=== PATIENT | female | born 1945 | race Caucasian/White ===

== ENCOUNTER → 2017-01-03 | Outpatient (CLI) | payer MEDICARE, BC | END | disposition home or self-care (01) | LOC: PCVCCLINIC 13:12 | PROVIDERS: ATTEND Internal Medicine Cardiovascular Disease | DX: I25.10 Atherosclerotic heart disease of native coronary artery without angina pectoris (principal); E78.00 Pure hypercholesterolemia, unspecified; M19.90 Unspecified osteoarthritis, unspecified site; J44.9 Chronic obstructive pulmonary disease, unspecified; K21.9 Gastro-esophageal reflux disease without esophagitis; Z90.49 Acquired absence of other specified parts of digestive tract; Z79.899 Other long term (current) drug therapy; Z87.891 Personal history of nicotine dependence | CPT/HCPCS: 80061; 93005; G0463 ==

== ENCOUNTER → 2017-02-06 | Outpatient (CLI) | payer MEDICARE, BC ==
[~2017-02-06] MED LIST: fentaNYL PF VIAL 100 MCG/2 ML VIAL ONE
--- NOTE | 2017-02-06 13:11 | PCVCIMAG ---
APPROVED REPORT Study performed: 02/06/2017 11:17:52 EXAM: Comprehensive 2D, Doppler, and color-flow Echocardiogram Patient Location: Echo lab Status: routine BSA: 1.40 HR: 106 bpmBP: 150/72 mmHg Rhythm: Tachycardia Other Information Study Quality: Adequate Risk Factors: Cardiac Risk Factors: SOB, HTN, Hyperlipidemia Indications COPD assess PAP 2D Dimensions LVEF(%): 31.71 (>50%) IVSd: 10.99 (7-11mm) LVDd: 32.70 mm PWd: 10.13 (7-11mm) LVDs: 27.97 (25-40mm) Left Atrium: 34.84 (27-40mm) Aortic Root: 28.93 mm LV Single Plane 4CH: 65.95 % LV Single Plane 2CH: 59.02 %Panchal's LVEF: 62.49 % Biplane EF: 62.2 % Volumes Left Atrial Volume (Systole) Single Plane 4CH: 45.49 mLSingle Plane 2CH: 51.46 mL LA ESV Index: 35.00 mL/m2 Aortic Valve AoV Peak Chapo.: 1.37 m/s AO Peak Gr.: 7.56 mmHgLVOT Max P.01 mmHg LVOT Max V: 1.00 m/s Mitral Valve E/A Ratio: 0.8 MV Decel. Time: 240.71 ms MV E Max Chapo.: 0.73 m/s MV A Chapo.: 0.92 m/s IVRT: 107.27 ms Pulmonary Valve PV Peak Chapo.: 1.20 m/sPV Peak Gr.: 5.74 mmHg Pulmonary Vein P Vein S: 0.22 m/sP Vein A: 0.39 m/s P Vein D: 0.29 m/sP Vein A Dur.: 117.6 msec P Vein S/D Ratio: 0.76 Tricuspid Valve TR Peak Chapo.: 2.88 m/s TR Peak Gr.: 33.20 mmHg Left Ventricle The left ventricle is normal size. There is normal LV segmental wall motion. There is normal left ventricular wall thickness. Left ventricular systolic function is normal. The left ventricular ejection fraction is within the normal range. LVEF is 65%. Grade I - abnormal relaxation pattern. Right Ventricle The right ventricle is normal size. The right ventricular systolic function is normal. Atria The left atrium size is normal. The right atrium size is normal. Aortic Valve The aortic valve is normal in structure. No aortic regurgitation is present. There is no aortic valvular stenosis. Mitral Valve The mitral valve is normal in structure. There is no mitral valve regurgitation noted. No evidence of mitral valve stenosis. Tricuspid Valve The tricuspid valve is normal in structure. Mild tricuspid regurgitation with PAP of 40 mmHg. Pulmonic Valve The pulmonary valve is normal in structure. There is no pulmonic valvular regurgitation. Great Vessels The aortic root is normal in size. IVC is normal in size and collapses with >50% inspiration Pericardium There is no pericardial effusion. <Conclusion> Left ventricular systolic function is normal. The left ventricular ejection fraction is within the normal range. LVEF is 65%. Grade I - abnormal relaxation pattern. The right ventricle is normal size. The left atrium size is normal. The right atrium size is normal. The aortic valve is normal in structure. There is no mitral valve regurgitation noted. Mild tricuspid regurgitation with PAP of 40 mmHg. There is no pericardial effusion.
== END | disposition home or self-care (01) ==
LOC: PCVCIMAG 11:30
PROVIDERS: ATTEND Internal Medicine Cardiovascular Disease
DX: I07.1 Rheumatic tricuspid insufficiency (principal); I10 Essential (primary) hypertension; J44.9 Chronic obstructive pulmonary disease, unspecified; E78.5 Hyperlipidemia, unspecified; K21.9 Gastro-esophageal reflux disease without esophagitis; C02.9 Malignant neoplasm of tongue, unspecified
CPT/HCPCS: 93306; J3010

== ENCOUNTER → 2017-08-02 | Outpatient (CLI) | payer MEDICARE, BC | END | disposition home or self-care (01) | LOC: PCVCIMAG 10:23 | DX: I10 Essential (primary) hypertension (principal); E78.00 Pure hypercholesterolemia, unspecified; I42.9 Cardiomyopathy, unspecified; C02.9 Malignant neoplasm of tongue, unspecified; K21.9 Gastro-esophageal reflux disease without esophagitis; J44.9 Chronic obstructive pulmonary disease, unspecified; I34.0 Nonrheumatic mitral (valve) insufficiency; I25.10 Atherosclerotic heart disease of native coronary artery without angina pectoris; Z82.49 Family history of ischemic heart disease and other diseases of the circulatory system | CPT/HCPCS: 80061; 93005; 93308; G0463 ==

== ENCOUNTER → 2018-01-24 | Outpatient (CLI) | payer MEDICARE, BC ==
--- NOTE | 2018-01-24 14:28 | PCVCIMAG ---
EXAM: BILATERAL RENAL ULTRASOUND AND BILATERAL RENAL DUPLEX INDICATION: Hypertension. FINDINGS: Right kidney: Length measures 10.6 cm. No hydronephrosis or extensive renal scarring. Incidental note is made of a 1.0 x 1.4 cm benign cyst midpole medially. Right renal duplex: Adequate technical quality. No sonographic evidence of renal artery stenosis. The aortic to renal artery ratio is 1.6. The renal vein is patent. Left kidney: Length measures 10.3 cm. No hydronephrosis or extensive renal scarring. Left renal duplex: Adequate technical quality. No sonographic evidence of renal artery stenosis. The aortic to renal artery ratio is 1.7. The renal vein is patent. Bladder: No obvious abnormalities. IMPRESSION: No significant renal artery stenosis. No hydronephrosis bilaterally. LOC:[id number]
== END | disposition home or self-care (01) ==
LOC: PCVCIMAG 12:50
PROVIDERS: ATTEND Internal Medicine Cardiovascular Disease
DX: N28.1 Cyst of kidney, acquired (principal); I10 Essential (primary) hypertension
CPT/HCPCS: 76770; 93975

== ENCOUNTER → 2018-03-21 | Outpatient (CLI) | payer MEDICARE, BC | END | disposition home or self-care (01) | LOC: PCVCCLINIC 11:20 | PROVIDERS: ATTEND Internal Medicine Cardiovascular Disease | DX: I51.81 Takotsubo syndrome (principal); R06.02 Shortness of breath; J44.9 Chronic obstructive pulmonary disease, unspecified; F41.9 Anxiety disorder, unspecified; I25.10 Atherosclerotic heart disease of native coronary artery without angina pectoris; I27.20 Pulmonary hypertension, unspecified; Z82.49 Family history of ischemic heart disease and other diseases of the circulatory system; Z87.891 Personal history of nicotine dependence | CPT/HCPCS: 80061; 93005; G0463 ==

== ENCOUNTER → 2018-10-17 | Outpatient (CLI) | payer MEDICARE ==
--- NOTE | 2018-10-17 16:57 | PCVCIMAG ---
APPROVED REPORT Study performed: 10/17/2018 11:09:38 EXAM: Comprehensive 2D, Doppler, and color-flow Echocardiogram Patient Location: Echo lab Status: routine BSA: 1.40 HR: 70 bpmBP: 150/80 mmHg Rhythm: NSR Other Information Study Quality: Adequate Technically limited study due to inability to position patient. Indications COPD Dyspnea CAD 2D Dimensions IVSd: 9.97 (7-11mm)LVOT Diam: 17.00 (18-24mm) LVDd: 32.77 mm PWd: 9.97 (7-11mm) LVDs: 22.76 (25-40mm) Aortic Root: 24.12 mm LV Single Plane 4CH: 64.81 % LV Single Plane 2CH: 58.72 % Biplane EF: 62.1 % Volumes Left Atrial Volume (Systole) Single Plane 4CH: 43.14 mLSingle Plane 2CH: 36.72 mL LA ESV Index: 30.00 mL/m2 Aortic Valve AoV Peak Chapo.: 1.73 m/s AO Peak Gr.: 11.99 mmHgLVOT Max P.96 mmHg LVOT Max V: 0.86 m/s ROSALVA Vmax: 1.14 cm2 Mitral Valve E/A Ratio: 0.8 MV Decel. Time: 221.64 ms MV E Max Chapo.: 0.86 m/s MV A Chapo.: 1.11 m/s IVRT: 62.28 ms TDI E/Lateral E': 12.29E/Medial E': 12.29 Medial E' Chapo.: 0.07 m/s Lateral E' Chapo.: 0.07 m/s Pulmonary Valve PV Peak Chapo.: 1.19 m/sPV Peak Gr.: 5.68 mmHg Pulmonary Vein P Vein S: 0.55 m/sP Vein A: 0.40 m/s P Vein D: 0.33 m/sP Vein A Dur.: 86.5 msec P Vein S/D Ratio: 1.67 Tricuspid Valve TR Peak Chapo.: 2.87 m/s TR Peak Gr.: 33.04 mmHg Left Ventricle The left ventricle is normal size. There is normal LV segmental wall motion. There is normal left ventricular wall thickness. Left ventricular systolic function is normal. The left ventricular ejection fraction is within the normal range. LVEF is 60-65%. Mild diastolic dysfunction is present (impaired relaxation pattern). Right Ventricle The right ventricle is normal size. The right ventricular systolic function is normal. Atria The left atrium size is normal. The right atrium size is normal. Aortic Valve The aortic valve is normal in structure. Trace aortic regurgitation. There is no aortic valvular stenosis. Mitral Valve The mitral valve is normal in structure. Mild mitral regurgitation. No evidence of mitral valve stenosis. Tricuspid Valve The tricuspid valve is normal in structure. Trace tricuspid regurgitation. Tricuspid regurgitation jet is 33 mmHg. Unable to assess PA pressure. Pulmonic Valve The pulmonary valve is normal in structure. There is no pulmonic valvular regurgitation. Great Vessels The aortic root is normal in size. IVC is not well visualized. Pericardium There is no pericardial effusion. <Conclusion> The left ventricle is normal size. LVEF is 60-65%. Mild diastolic dysfunction is present (impaired relaxation pattern). The left atrium size is normal. The aortic valve is normal in structure. Trace aortic regurgitation. Mild mitral regurgitation. Trace tricuspid regurgitation. Tricuspid regurgitation jet is 33 mmHg. Unable to assess PA pressure. The aortic root is normal in size. There is no pericardial effusion.
== END | disposition home or self-care (01) ==
LOC: PCVCIMAG 11:03
PROVIDERS: ATTEND Internal Medicine Cardiovascular Disease
DX: I34.0 Nonrheumatic mitral (valve) insufficiency (principal); I25.10 Atherosclerotic heart disease of native coronary artery without angina pectoris; R06.00 Dyspnea, unspecified; J44.9 Chronic obstructive pulmonary disease, unspecified
CPT/HCPCS: 36415; 80061; 93005; 93306; G0463

== ENCOUNTER → 2019-05-13 | Outpatient (CLI) | payer MEDICARE | END | disposition home or self-care (01) | LOC: PCVCCLINIC 15:41 | PROVIDERS: ATTEND Internal Medicine Cardiovascular Disease | DX: I25.10 Atherosclerotic heart disease of native coronary artery without angina pectoris (principal); E78.00 Pure hypercholesterolemia, unspecified; J44.9 Chronic obstructive pulmonary disease, unspecified; I42.9 Cardiomyopathy, unspecified; F41.9 Anxiety disorder, unspecified; I11.0 Hypertensive heart disease with heart failure; I50.33 Acute on chronic diastolic (congestive) heart failure; Z99.81 Dependence on supplemental oxygen | CPT/HCPCS: 36415; 80061; 93005; G0463 ==